=== PATIENT | male | born 1990 | race Caucasian/White ===

== ENCOUNTER 2019-07-26 17:46 | Observation (INO) | payer MEDICAID ==
[~2019-07-26] VITALS: Ht 180.3 cm; Wt 68.2 kg
[2019-07-26 19:12] LABS: BASOPHILS 1.1 % (0-2); EOSINOPHILS 0.9 % (0-7); HEMATOCRIT 49.1 % (42.0-54.0); LYMPHOCYTES 36.4 % (15-50); MCH 30.7 pg (26.0-34.0); MCHC 32.6 g/dL (31.0-37.0); MCV 94.2 fL (80.0-100.0); MEAN PLATELET VOLUME 10.7 fL (7.4-10.4); MONOCYTES 12.5 % (2-11); NEUTROPHILS 49.1 % (40-80); PLATELET COUNT 175 10x3/uL (130-400); RBC 5.21 10x6/uL (4.20-6.10); RDW 13.7 % (11.5-14.5); WBC 4.6 10x3/uL (4.8-10.8)
[2019-07-26 19:37] LABS: CALC OSMOLALITY 274 mosm/kg (275-300); CALCIUM 8.8 mg/dL (8.5-10.1); CARBON DIOXIDE 26.9 mmol/L (21.0-32.0); CHLORIDE - SERUM 102 mmol/L (98-107); CREATININE - SERUM 0.8 mg/dL (0.6-1.3); GLUCOSE 93 mg/dL (74-106); POTASSIUM - SERUM 3.9 mmol/L (3.5-5.1); SODIUM 139 mmol/L (136-145); UREA NITROGEN 5 mg/dL (7-18); eGFR NON AFRICAN AMERICAN > 90 mL/min (90-120)
[2019-07-26 19:49] LABS: ALBUMIN 3.7 g/dL (3.4-5.0); ALKALINE PHOSPHATASE 225 U/L (30-120); BILIRUBIN - TOTAL 5.87 mg/dL (0.2-1.3); LIPASE 143 U/L (73-393); PROTEIN - SERUM 7.6 g/dL (6.4-8.2)
[2019-07-26 19:52] LABS: ALT (SGPT) 1865 U/L (10-68)
[2019-07-26 20:00] VITALS: BP 130/61
[2019-07-26 20:32] VITALS: BP 112/60
[2019-07-26 21:28] LABS: BILIRUBIN NEGATIVE (NEGATIVE); GLUCOSE NEGATIVE (NEGATIVE); KETONE NEGATIVE (NEGATIVE); NITRITE NEGATIVE (NEGATIVE); UROBILINOGEN NORMAL (NORMAL)
[2019-07-26 21:31] VITALS: BP 126/77
[2019-07-26 22:31] VITALS: BP 104/62
[2019-07-27 00:35] VITALS: BP 120/60; BMI 20.9
[2019-07-27 04:00] VITALS: BP 112/52
[2019-07-27 04:51] LABS: BASOPHILS 0.3 % (0-2); EOSINOPHILS 1.5 % (0-7); HEMATOCRIT 42.7 % (42.0-54.0); HEMOGLOBIN 14.1 g/dL (13.5-17.5); LYMPHOCYTES 40.6 % (15-50); MCH 30.4 pg (26.0-34.0); MEAN PLATELET VOLUME 10.8 fL (7.4-10.4); MONOCYTES 12.9 % (2-11); NEUTROPHILS 44.7 % (40-80); PLATELET COUNT 190 10x3/uL (130-400); RBC 4.64 10x6/uL (4.20-6.10); RDW 13.8 % (11.5-14.5)
[2019-07-27 05:05] LABS: WBC 3.4 10x3/uL (4.8-10.8)
[2019-07-27 05:09] LABS: INR 1.1 (0.85-1.17); PROTIME 14.1 SECONDS (11.6-15.0)
[2019-07-27 05:10] LABS: APTT 33.2 SECONDS (22.8-39.4)
[2019-07-27 05:24] LABS: ALBUMIN 2.7 g/dL (3.4-5.0); ALKALINE PHOSPHATASE 184 U/L (30-120); ALT (SGPT) 1319 U/L (10-68); AMYLASE - SERUM 40 U/L (25-115); CALC OSMOLALITY 269 mosm/kg (275-300); CALCIUM 7.9 mg/dL (8.5-10.1); CARBON DIOXIDE 27.6 mmol/L (21.0-32.0); CHLORIDE - SERUM 107 mmol/L (98-107); GLUCOSE 87 mg/dL (74-106); LIPASE 145 U/L (73-393); MAGNESIUM - SERUM 1.7 mg/dL (1.8-2.4); PHOSPHOROUS 4.5 mg/dL (2.5-4.9); POTASSIUM - SERUM 3.3 mmol/L (3.5-5.1); PRO BNP 104 pg/mL (0-125); PROTEIN - SERUM 6.1 g/dL (6.4-8.2); SODIUM 137 mmol/L (136-145); UREA NITROGEN 4 mg/dL (7-18); eGFR NON AFRICAN AMERICAN > 90 mL/min (90-120)
--- NOTE | 2019-07-27 07:15 | NUR ---
NPO FOR POSSIBLE SURGERY, GUARD AT THE BEDSIDE.
[2019-07-27 09:53] VITALS: BP 106/68
[2019-07-27 10:03] VITALS: Ht 180.3 cm; Wt 68.2 kg
[2019-07-27 13:21] VITALS: BP 101/50
--- NOTE | 2019-07-27 16:38 | MORECARE ---
CASE MANAGEMENT DISCHARGE SUMMARY PATIENT: MIKIE BLANK UNIT: [id number] ADM DATE: 07/26/19 AGE: 29 : [birth year] SEX: M ROOM/BED: D.2213 AUTHOR: PALAK ADAME PHYSICIAN: REFERRING PHYSICIAN: ISAAC IVERSON DO DATE OF SERVICE: 07/27/19 Discharge Plan Patient Name: MIKIE BLANK Facility: [facility]:[place] : 1990 Planned Disposition: Anticipated Discharge Date: Discharge Date: Expected LOS: Initial Reviewer: [email or web address] Initial Review Date: 07/27/2019 Generated: 07/27/19 5:37 pm Patient Name: MIKIE BLANK Page [id number] at 1638 All edits/amendments must be made on the electronic document DICTATION DATE: 07/27/19 1637 OVEREDGER: SONAM 07/27/19 1637 RPT#: [id number] DC DATE: STATUS: ADM IN [facility] [address] [place] [address] END OF REPORT
--- NOTE | 2019-07-27 16:45 | MORECARE ---
CASE MANAGEMENT DISCHARGE SUMMARY PATIENT: MIKIE BLANK UNIT: [id number] ADM DATE: 07/26/19 AGE: 29 : [birth year] SEX: M ROOM/BED: D.2213 AUTHOR: PALAK ADAME PHYSICIAN: REFERRING PHYSICIAN: ISAAC IVERSON DO DATE OF SERVICE: 07/27/19 Discharge Plan Patient Name: [facility]IE [facility]ANK [facility] [facility] 1990 Planned Disposition: Anticipated Discharge Date: Discharge Date: Expected LOS: Initial Reviewer: [email or web address] Initial Review Date: 07/27/2019 Generated: 07/27/19 5:44 pm Comments DCP- Discharge Planning Updated by [email or web address]: Pauline Lim on 07/27/19 3:[address] PATIENT WILL DISCHARGE BACK TO [facility] TO [facility] GAVE REPORT TO ALFONZO METZ, NUMBER [phone] [facility] WILL PROVIDE TRANSPORTATION Last DP export: 07/27/19 3:38 p Patient Name: MIKIE BLANK Page [id number] at 1645 All edits/amendments must be made on the electronic document DICTATION DATE: 07/27/191644 MEDICAL ASSISTANT INSTRUCTOR: SONAM 07/27/191644 RPT#: [id number] DC DATE: STATUS: ADM IN [facility] [address] [place] [address] END OF REPORT
--- NOTE | 2019-07-27 17:55 | NUR ---
CALLED REPORT TO HAFSA VALLES AT [facility] [phone]. HIS IV IS OUT, JUST WAITING ON A RIDE FROM [facility].
--- NOTE | 2019-07-27 18:17 | NUR ---
TAKEN OUT IN A WHEELCHAIR TO THE ER, TWO GUARDS WERE PRESENT.
[2019-07-28 07:12] LABS: HEPATITIS C ANTIBODY >11.0 S/CO RAT (0.0-0.9)
--- NOTE | 2019-07-28 10:22 | MORECARE ---
CASE MANAGEMENT DISCHARGE SUMMARY PATIENT: MIKIE BLANK UNIT: [id number] ADM DATE: 07/26/19 AGE: 29 : [birth year] SEX: M ROOM/BED: D.2213 AUTHOR: PALAK ADAME PHYSICIAN: REFERRING PHYSICIAN: ISAAC IVERSON DO DATE OF SERVICE: 07/28/19 Discharge Plan Patient Name: [facility]IE [facility]ANK [facility] [facility] 1990 Planned Disposition: Anticipated Discharge Date: Discharge Date: 07/27/2019 Expected LOS: Initial Reviewer: [email or web address] Initial Review Date: 07/27/2019 Generated: 07/28/19 11:21 am Comments DCP- Discharge Planning Updated by [email or web address]: Pauline Lim on 07/27/19 3:[address] PATIENT WILL DISCHARGE BACK TO [facility] TO [facility] GAVE REPORT TO ALFONZO METZ, NUMBER [phone] [facility] WILL PROVIDE TRANSPORTATION Last DP export: 07/27/19 3:45 p Patient Name: MIKIE BLANK Page [id number] at 1022 All edits/amendments must be made on the electronic document DICTATION DATE: 07/28/19 1021 [facility] ATTENDANT: SONAM 07/28/19 1021 RPT#: [id number] DC DATE:07/27/19 STATUS: DIS IN [facility] [address] [place] [address] END OF REPORT
== END 2019-07-27 18:18 ==
LOC: D.ER 17:46 → OBSVTIME 22:52 → D.MS 22:52
PROVIDERS: Family Medicine; Surgery; ADMIT Family Medicine; ATTEND Family Medicine
DX: K81.0 Acute cholecystitis (principal); B19.20 Unspecified viral hepatitis C without hepatic coma; Z72.0 Tobacco use